=== PATIENT | female | born 1995 | race Caucasian/White ===

== ENCOUNTER 2017-09-29 22:34 | Outpatient (CLI) | payer SELFPAY | END 2017-09-30 01:02 | disposition home or self-care (01) | LOC: M LDO 22:34 | DX: O47.1 False labor at or after 37 completed weeks of gestation (principal); Z3A.39 39 weeks gestation of pregnancy | CPT/HCPCS: 59025 ==

== ENCOUNTER 2017-09-30 02:16 | Inpatient (IN) | payer OTHER ==
[2017-09-30] MEDS ORDERED: OXYTOCIN 30 UNITS IN 0.9% NaCl 500ML IV BAG (J2590) As Ordered (02:22)
[2017-09-30 02:51] LABS: HEMATOCRIT 34.9 % (36.0-47.0); HEMOGLOBIN 11.1 g/dl (12.0-15.5); MEAN CORPUSCULAR HEMOGLOBIN 24.7 pg (27.0-33.0); MEAN CORPUSCULAR HGB CONC 31.8 g/dl (32.0-36.5); MEAN CORPUSCULAR VOLUME 77.7 fl (80.0-96.0); PLATELET COUNT, AUTOMATED 298 10^3/uL (150-450); RED BLOOD COUNT 4.49 10^6/uL (4.00-5.40); RED CELL DISTRIBUTION WIDTH 14.6 % (11.5-14.5); WHITE BLOOD COUNT 12.9 10^3/uL (4.0-10.0)
[2017-09-30] MEDS ORDERED: LR 1,000 ML IV (03:05)
[2017-09-30] MEDS: OXYTOCIN DRIP 30 UNITS in APPROPRIATE DILUENT 1 EA IV (03:07)
[2017-09-30] MEDS ORDERED: RHOGAM 300 MCG (1500 IU) INJ (J2790) IM (03:15)
[2017-09-30] MEDS ORDERED: MEASLES,MUMPS,RUBELLA VACCINE INJ (MMR-II) (90707) SC (03:15)
[2017-09-30] MEDS ORDERED: METOCLOPRAMIDE INJ 10MG/2ML VIAL (J2765) IV (03:15)
[2017-09-30] MEDS ORDERED: ACETAMINOPHEN TAB 650MG DOSE (2X325MG) PO (03:15)
[2017-09-30] MEDS: DIBUCAINE 1% OINTMENT 30GM TOP (06:07)
[2017-09-30] MEDS: PRENATAL VITAMINS CHEWABLE TABLET PO (08:16)
[2017-09-30] MEDS: DOCUSATE SODIUM 100 MG CAP PO ×2 (08:16→20:39)
[2017-09-30] MEDS: IBUPROFEN 800 MG TAB PO (12:01)
[2017-10-01] MEDS: PRENATAL VITAMINS CHEWABLE TABLET PO (08:28)
[2017-10-01] MEDS: DOCUSATE SODIUM 100 MG CAP PO (08:28)
== END 2017-10-01 11:45 | disposition home or self-care (01) | DRG 775 ==
LOC: M LDO 02:16 → M LDI 02:21 → M OBS 05:30
PROVIDERS: Obstetrics & Gynecology
PROC: 10E0XZZ Delivery of Products of Conception, External Approach (ICD-10-PCS; principal; 2017-09-30)
PROC: 10907ZC Drainage of Amniotic Fluid, Therapeutic from Products of Conception, Via Natural or Artificial Opening (ICD-10-PCS; 2017-09-30)
DX: O13.4 Gestational [pregnancy-induced] hypertension without significant proteinuria, complicating childbirth (principal); Z37.0 Single live birth; Z3A.39 39 weeks gestation of pregnancy; E66.9 Obesity, unspecified; O99.214 Obesity complicating childbirth; O69.89X0 Labor and delivery complicated by other cord complications, not applicable or unspecified

== ENCOUNTER → 2018-05-03 | Outpatient (REF) | payer OTHER ==
[~2018-05-03] MED LIST: COLA100C5 PO; IBUP-1114 PO; MAPA500T2 PO; NUPE1OIN2 TOP; PRENTAB9 PO
[2018-05-03 16:00] LABS: CHLAMYDIA DNA AMPLIFICATION NEGATIVE (NEGATIVE); GC DNA AMPLIFICATION NEGATIVE (NEGATIVE)
== END ==
LOC: M LAB REF 14:04
PROVIDERS: ATTEND Physician Assistant
DX: R30.0 Dysuria (principal)

== ENCOUNTER 2018-06-23 13:21 | Emergency (ER) | payer OTHER ==
[~2018-06-23] VITALS: Ht 152.4 cm; Wt 80.0 kg
[2018-06-23 14:52] LABS: URINE PREG TEST NEGATIVE (NEGATIVE)
[2018-06-23] MEDS ORDERED: IBUPROFEN 600 MG TAB PO ONE (15:00)
[2018-06-23 15:43] LABS: HEMATOCRIT 41.4 % (36.0-47.0); HEMOGLOBIN 13.2 g/dl (12.0-15.5); MEAN CORPUSCULAR HEMOGLOBIN 26.6 pg (27.0-33.0); MEAN CORPUSCULAR HGB CONC 31.9 g/dl (32.0-36.5); MEAN CORPUSCULAR VOLUME 83.5 fl (80.0-96.0); PLATELET COUNT, AUTOMATED 248 10^3/uL (150-450); RED BLOOD COUNT 4.96 10^6/uL (4.00-5.40); WHITE BLOOD COUNT 23.2 10^3/uL (4.0-10.0)
[2018-06-23 16:06] LABS: BLOOD UREA NITROGEN 11 MG/DL (7-18); CALCIUM LEVEL 8.7 MG/DL (8.5-10.1); CARBON DIOXIDE LEVEL 26 MEQ/L (21-32); CHLORIDE LEVEL 105 MEQ/L (98-107); GLOMERULAR FILTRATION RATE > 60.0 (>60); GLUCOSE, FASTING 99 MG/DL (70-100); POTASSIUM SERUM 4.1 MEQ/L (3.5-5.1); SODIUM LEVEL 138 MEQ/L (136-145)
[2018-06-23] MEDS ORDERED: ISOVUE-370 76% 100ML VIAL (Q9967) As Ordered ONE (16:12)
[2018-06-23] MEDS ORDERED: NS 1,000 ML IV ONE (16:15)
[2018-06-23 16:23] LABS: ALBUMIN 4.1 GM/DL (3.2-5.2); ALT/SGPT 30 U/L (12-78); BILIRUBIN,DIRECT 0.1 MG/DL (0.0-0.2); BILIRUBIN,TOTAL 0.5 MG/DL (0.2-1.0); LIPASE 62 U/L (73-393); TOTAL PROTEIN 7.3 GM/DL (6.4-8.2)
--- NOTE | 2018-06-23 16:34 | REP ---
Pelvic ultrasound including transabdominal, endovaginal and Doppler ultrasound assessment: The study performed for pelvic pain. The bladder is nondistended The uterus is anteverted and normal size measuring 8.6 x 4.4 by 6.9 cm. The endometrium is not thickened measuring 6.2 mm. However, the endometrial margin is obscured. This may represent adenomyosis. Consider follow-up pelvic MRI for further evaluation. The right ovary measures 3.5 x 2.2 x 1.8 cm. Left ovary measures 3.0 x 1.41 point 9 cm. The ovaries are normal size. There are no dominant ovarian masses or There is a vascular flow in both ovaries. The Doppler resistive index of the parenchymal arteries of the right ovary 0.52 and left ovary 0.52. There is no free fluid in the pelvis. Impression: Essentially negative pelvic ultrasound except that the endometrial margin is somewhat obliterated. This is nonspecific but may represent adenomyosis. Consider follow-up pelvic MRI. Electronically Signed by Tank Spear MD 06/23/2018 04:25 P
--- NOTE | 2018-06-23 17:09 | REP ---
CT of the abdomen pelvis with IV contrast, without bowel contrast: The visualized lung shaikh are unremarkable. The hepatic parenchyma, gallbladder, pancreas, spleen, adrenals, kidneys, abdominal aorta, bowel and mesentery are unremarkable. Pelvis: The appendix is unremarkable. The uterus and adnexa are unremarkable. A small follicle is incidentally noted in the right adnexa. There is no ascites or adenopathy. The bladder is nondistended and cannot be further evaluated. The pelvic bowel loops are unremarkable. Impression: Essentially negative CT of the abdomen and pelvis. Electronically Signed by Tank Spear MD 06/23/2018 05:01 P
[2018-06-23] MEDS ORDERED: DOXY100C37 PO (17:13)
[2018-06-23] MEDS ORDERED: cefTRIAXone SOD 250 MG VIAL (J0696) IV ONE (17:15)
[2018-06-23 17:24] VITALS: BP 115/66
[2018-06-23 18:38] LABS: CHLAMYDIA DNA AMPLIFICATION NEGATIVE (NEGATIVE); GC DNA AMPLIFICATION NEGATIVE (NEGATIVE)
--- NOTE | 2018-06-23 19:00 | ED PDOC ---
Post-Departure Follow-Up ft nga hussein faxed formal report of pelvic us for fu Arleth Moore MD Jun 23, 2018 19:00
[2018-06-24] MEDS ORDERED: IBUP80TA (10:29)
== END 2018-06-23 17:55 | disposition home or self-care (01) ==
LOC: M ED 13:21
DX: R10.2 Pelvic and perineal pain (principal); D72.829 Elevated white blood cell count, unspecified
CPT/HCPCS: 74177; 76830; 76856; 80048; 80076; 81001; 83690; 84703; 85027; 87086; 87491; 87591; 93976; 96374; 99284; J0696; Q9967

== ENCOUNTER 2018-06-24 10:24 | Emergency (ER) | payer OTHER ==
[~2018-06-24] VITALS: Ht 152.4 cm; Wt 79.5 kg
[~2018-06-24 10:24] MED LIST changes: +DOXY100C37 PO
[2018-06-24] MEDS ORDERED: IBUP80TA (10:29)
[2018-06-24 11:03] LABS: BASO % 0.3 % (0.0-1.0); EOS # 0.1 10^3/uL (0.0-0.50); EOS % 0.6 % (0.0-3.0); HEMATOCRIT 39.7 % (36.0-47.0); HEMOGLOBIN 12.6 g/dl (12.0-15.5); LYMPH # 1.3 10^3/uL (1.5-6.5); LYMPH % 9.2 % (24.0-44.0); MEAN CORPUSCULAR HEMOGLOBIN 26.6 pg (27.0-33.0); MEAN CORPUSCULAR HGB CONC 31.7 g/dl (32.0-36.5); MEAN CORPUSCULAR VOLUME 83.9 fl (80.0-96.0); MONO # 0.4 10^3/uL (0.0-0.8); MONO % 2.7 % (0.0-5.0); NEUTROPHILS # 12.7 10^3/uL (1.8-7.7); NEUTROPHILS % 86.9 % (36.0-66.0); PLATELET COUNT, AUTOMATED 225 10^3/uL (150-450); RED BLOOD COUNT 4.73 10^6/uL (4.00-5.40); WHITE BLOOD COUNT 14.6 10^3/uL (4.0-10.0)
[2018-06-24 11:23] LABS: BLOOD UREA NITROGEN 10 MG/DL (7-18); CALCIUM LEVEL 8.3 MG/DL (8.5-10.1); CARBON DIOXIDE LEVEL 26 MEQ/L (21-32); CHLORIDE LEVEL 110 MEQ/L (98-107); CREATININE FOR GFR 0.64 MG/DL (0.55-1.30); GLOMERULAR FILTRATION RATE > 60.0 (>60); GLUCOSE, FASTING 109 MG/DL (70-100); POTASSIUM SERUM 3.6 MEQ/L (3.5-5.1); SODIUM LEVEL 140 MEQ/L (136-145)
[2018-06-24 11:42] VITALS: BP 126/69
== END 2018-06-24 11:45 | disposition home or self-care (01) ==
LOC: M ED 10:24
DX: R10.2 Pelvic and perineal pain (principal); Z79.2 Long term (current) use of antibiotics